=== PATIENT | male | born 1965 | race Caucasian/White ===

== ENCOUNTER 2021-08-30 10:12 | Outpatient (CLI) | payer BC, SELFPAY ==
--- NOTE | 2021-08-30 10:25 | US_ITS ---
STUDY: RENAL ULTRASOUND - COMPLETE REASON FOR EXAM: Male, 55 years old. OCCLUSION TECHNIQUE: Ultrasound evaluation of the kidneys was performed with real-time and static anders-scale imaging. COMPARISON: None. FINDINGS: RIGHT KIDNEY: Normal location of the right kidney, which is normal in size. The right kidney measures 14.1 cm. There is a normal cortex of the right kidney. The renal cortex measures 1.4 cm. 1.5 cm cyst midsection right kidney. There are no right renal calculi. There is moderate hydronephrosis of the right kidney. DISTAL RIGHT URETER: There is non-visualization of the distal right ureter. There is no demonstrated right ureterovesical junction calculus. There is a visualized right ureteral jet. LEFT KIDNEY: Normal location of the left kidney, which is normal in size. The left kidney measures 13.0 cm. There is a normal cortex of the left kidney. The renal cortex measures 2.2 cm. There is no left renal mass or cyst. There are no left renal calculi. There is no left hydronephrosis. DISTAL LEFT URETER: There is non-visualization of the distal left ureter. There is no demonstrated left ureterovesical junction calculus. There is a visualized left ureteral jet. BLADDER: The distended urinary bladder has a volume of 260 ml. The empty urinary bladder has a volume of ml. There is a normal wall thickness of the distended urinary bladder. There is no demonstrated mass within the urinary bladder. There are no demonstrated bladder calculi. US/Kidney and Bladder IMPRESSION: Moderate right hydronephrosis. Electronically Signed: Cabrera Walker MD at 12:26 EST Tel , Service support ,
== END 2021-08-30 23:59 | disposition short-term general hospital (02) ==
PROVIDERS: PCP Family Medicine; Referring Provider Urology; Visit Provider Urology
DX: Q62.11 Congenital occlusion of ureteropelvic junction (principal)
CPT/HCPCS: 76770

== ENCOUNTER 2021-09-08 10:45 | Outpatient (CLI) | payer BC, SELFPAY ==
--- NOTE | 2021-09-08 12:49 | NM_ITS ---
CLINICAL: 55-year-old male with reported history of right flank pain, right kidney hydronephrosis. 99m Tc MAG3 DIURETIC RENAL SCINTIGRAPHY COMPARISON: Renal ultrasound report 08/30/2021 FINDINGS: Following the intravenous administration of 10.5 mCi of 99m Tc MAG3, renal images reveal: 1. The flow study demonstrates relatively normal arterial phase distribution of the radiopharmaceutical to the left kidney. Flow to the right kidney is delayed and decreased. 2. Immediate static delayed nephrogram images depict prompt, homogeneous tracer uptake by the renal parenchyma of the left kidney. Heterogeneous, decreased and delayed radiotracer activity is defined in the right kidney relative to the left. Collecting structure visualization is demonstrated at approximately 2 minutes following tracer injection involving the left and right renal units. Washout of the radiopharmaceutical by the renal parenchyma of the left kidney appears qualitatively normal and prolonged in the right renal unit. Spontaneous drainage of the left kidney collecting system activity is noted during 20 minutes of pre-Lasix sequential image acquisition. Prominent persistent uptake is noted in the right kidney collecting system prior to diuretic provision. 3. The wojkx-hm-wuvm ratio of total renal parenchymal function was calculated to be 47/53. Furosemide 10 mg was administered intravenously. The post Lasix T ? washout of the right kidney collecting system was calculated to be > 20 minutes, (normal < 10 minutes). Analysis of the post diuretic right kidney collecting system time/activity curve demonstrates minimally decreasing count statistics. NM/Renal Scan w/ Pharm Intervent IMPRESSION: 1. There is preservation of left kidney renal parenchymal-cortical function. Cortical dysfunction is displayed in the right renal unit as described above. 2. The prominent right kidney collecting system demonstrates an abnormal response to induced diuresis consistent with the presence of mechanical and/or functional obstruction. T ? Electronically Signed: Cabrera Martinez DO at 14:27 EST Tel , Service support ,
== END 2021-09-08 23:59 | disposition short-term general hospital (02) ==
LOC: US 10:45 → NM 10:46
PROVIDERS: PCP Family Medicine; Referring Provider Urology; Visit Provider Urology
DX: Q62.11 Congenital occlusion of ureteropelvic junction (principal)
CPT/HCPCS: 78708; A9562; J1940

== ENCOUNTER 2021-10-17 05:50 | Day surgery (SDC) | payer BC, SELFPAY ==
--- NOTE | 2021-10-16 09:34 | EKG12_ITS ---
Test Reason : PRE OP Blood Pressure : / mmHG Vent. Rate : 070 BPM Atrial Rate : 070 BPM P-R Int : 154 ms QRS Dur : 102 ms QT Int : 390 ms P-R-T Axes : 055 -25 041 degrees QTc Int : 421 ms Normal sinus rhythm Normal ECG Confirmed by TODD BAEZ, ARMEN ([id number]), subeditor ROBERT MEDINA ([id number]) on 10/17/2021 1:54:21 PM Referred By: Mitchell Flores Confirmed By:ARMEN BROOKS MD
[2021-10-16 10:19] LABS: Hematocrit 45.3 % (40-54); Hemoglobin 15.6 g/dL (13.0-16.5); Mean Corp Hgb Conc 34.4 g/dL (32-36); Mean Corpuscular Hgb 30.9 pg (27.0-32.0); Mean Corpuscular Volume 89.7 fL (80-94); Mean Platelet Vol. 10.3 fl (6.2-12.0); Platelet Count 181 K/mm3 (150-450); RBC Distribution Width CV 12.3 % (11.6-14.6); RBC Distribution Width SD 40.2 fl (35.1-43.9); Red Blood Count 5.05 M/mm3 (4.6-6.2); White Blood Count 5.3 K/mm3 (4.4-11.0)
[2021-10-16 10:43] LABS: Anion Gap 6 (5-15); BUN 17 mg/dL (7-18); BUN/Creat Ratio 21.8 RATIO (10-20); Calcium,Total 9.2 mg/dL (8.5-10.1); Chloride 106 mmol/L (98-107); Creatinine, Serum 0.78 mg/dL (0.70-1.30); EST Glomerular Filtration Rate 109 mL/min (>60); Est Glom Filt Rate - Afr Amer 132 mL/min (>60); Glucose 88 mg/dL (74-106); Potassium 3.8 mmol/L (3.5-5.1); Sodium Level 138 mmol/L (136-145)
[2021-10-17 06:24] VITALS: BP 155/91; PULSE 72; RESP 72; TEMP 36.7; O2SAT 97; BMI 29.6
[2021-10-17] MEDS: Lactated Ringers 1,000 ML 30 ML IV (06:50)
[2021-10-17] MEDS: Cefazolin 2 GM in 0.9% Normal Saline 100 ML IV (07:37)
--- NOTE | 2021-10-17 07:43 | HP.PCM_ITS ---
HPI - General HPI Narrative MADAN LOO, is a 56 M who presents For repair of a right UPJ obstruction outside CAT scan was reviewed showed demonstrated right severe hydronephrosis as well as ultrasound demonstrated right hydronephrosis, renal scan was done demonstrates 43% function in the right kidney 57% function of the left kidney with significant delay of contrast from the right renal pelvis consistent with mechanical UPJ obstruction. We discussed with the patient the options of management for this obstruction when would be observation since he is having little pain the other would be surgical repair with a pyeloplasty we discussed the success rate with pyeloplasty and he consented for the procedure. [facility] Medical History (Updated 10/17/21 @ 07:[address] Mitchell Flores MD) Alcohol use Chewing tobacco use High cholesterol Hypertension Injury of back Marijuana use Sleep apnea Home Medications amlodipine 10 mg PO DAILY 10/08/21 [History Last Taken Unknown] atenolol 25 mg PO DAILY 10/08/21 [History Last Taken Unknown] losartan-hydrochlorothiazide 1 tab PO DAILY 10/08/21 [History Last Taken Unknown] pravastatin 10 mg PO DAILY 10/08/21 [History Last Taken Unknown] ciprofloxacin HCl 500 mg PO BID #10 tab 10/17/21 [Rx Last Taken Unknown] docusate sodium [Colace] 100 mg PO BID #20 cap 10/17/21 [Rx Last Taken Unknown] oxycodone-acetaminophen [Endocet] 1 tab PO Q4H PRN 7 Days #20 tab 10/17/21 [Rx Last Taken Unknown] Allergy/AdvReac Type Severity Reaction Status Date / Time No Known Allergies Allergy Verified 10/17/21 06:21 Surgical History (Updated 10/08/21 @ 09:27 by Adriana Garcia) Hx of colonoscopy Social History Smoking Status: Never smoker ROS Constitutional Constitutional: Denies chills, fever(s) or malaise Eyes Eyes: Denies blurry vision or change in vision ENT HEENT: Reports none Cardiovascular Cardiovascular: Denies chest pain or palpitations Respiratory/Chest Respiratory/Chest: Denies cough or shortness of breath with exertion Gastrointestinal Gastrointestinal: Denies abdominal pain, constipation or diarrhea Musculoskeletal Musculoskeletal: Denies back pain, joint stiffness or joint swelling Integumentary Integumentary: Denies dry skin, jaundice, lesions or rash Neurologic Neurologic: Denies confusion, syncope or weakness Psychiatric Psychiatric: Reports none; Denies anxiety or depression Endocrine Endocrinology: Denies excessive sweating, fatigue or flushing Hematologic/Lymphatic Hematologic/Lymphatic: Denies anemia, easy bleeding or easy bruising Vital Signs Vital Signs Vital Signs: 10/17/21 06:24 Temperature 98.1 F Temperature Source Temporal Pulse Rate 72 Respiratory Rate 72 H Respiratory Pattern Normal Blood Pressure 155/91 H Blood Pressure Mean 112 Blood Pressure Source Monitor Blood Pressure Position Semi-Fowlers Blood Pressure Location Right Arm Pulse Ox 97 Oxygen Delivery Method Room Air Weight Weight: 99 kg Body Mass Index (BMI) 29.6 Physical Exam Const alert and oriented x3 General Appearance: cooperative HEENT normocephalic, head/scalp atraumatic, EAC's normal and TM's normal bilaterally Eyes PERRL and EOMs intact bilaterally Pupil: sluggish Neck no lymphadenopathy, supple and no JVD General: trachea midline Lymph Lymphatic: no lymphadenopathy noted, lymphedema and lymphadenopathy Resp normal respiratory effort, normal air movement and clear to auscultation bilaterally Cardio regular rate, regular rhythm and peripheral pulses 2+ throughout GI soft to palpation, non-tender and non-distended Extremity normal capillary refill and no clubbing, cyanosis or edema General Extremity: no tenderness to palpation of joints or extremities Skin no rashes or lesions noted General Skin Exam: turgor normal Lesions: no lesions Rashes: no rashes Neuro CN's II-XII intact bilaterally Speech: speech normal Motor Exam: strength 5/5 throughout; Negative for general weakness Psych thought process normal, cooperative and affect normal Appearance: appropriate Results Lab / Micro Data Result Diagrams: 10/16/21 09:22 10/16/21 09:22 Labs: Laboratory Results - last 24 hr 10/16/21 09:22: WBC 5.3, RBC 5.05, Hgb 15.6, Hct 45.3, MCV 89.7, MCH 30.9, MCHC 34.4, RDW Std Deviation 40.2, RDW Coeff of Benito 12.3, Plt Count 181, MPV 10.3 10/16/21 09:22: Sodium 138, Potassium 3.8, Chloride 106, Carbon Dioxide 26.0, Anion Gap 6, BUN 17, Creatinine 0.78, Est GFR (MDRD) Af Amer 132, Est GFR (MDRD) Non-Af 109, BUN/Creatinine Ratio 21.8 H, Glucose 88, Calcium 9.2 Micro: Microbiology 10/16/21 11:10 Interface Orders SARS-CoV-2 Antigen (Rapid) - Final
--- NOTE | 2021-10-17 07:46 | PCM.DC ---
Discharge Instructions Diet Discharge Diet: Light diet - advance as tolerated and Soft diet Activity Discharge Activity: May Not Drive (while taking narcotic pain medications.) Return to work on:: 11/14/21 May shower in (days): 1 May resume sexual activity in: No Restrictions Dressing / Incision Call your doctor if you observe: Fever of 101 or Higher Follow Up Care Please Follow Up With: Mitchell Flores MD When: Call [phone] for an appointment Test Results: Test results from this visit will be discussed in further detail at your follow-up appointment, if applicable. Discharge Plan Admission Primary Reason for Your Visit: Right laparoscopic robotic assisted pyeloplasy repair Attending Provider: Mitchell Flores Primary Care Provider: Merritt Grant Consulting Providers: Wayne Ugalde Discharge Orders/Prescriptions Prescriptions: New oxycodone-acetaminophen [Endocet] 5-325 mg tablet 1 tab PO Q4H PRN (Reason: pain) 7 Days Qty: 20 RF: 0 docusate sodium [Colace] 100 mg capsule 100 mg PO BID Qty: 20 RF: 0 ciprofloxacin HCl 500 mg tablet 500 mg PO BID Qty: 10 RF: 0 Continued atenolol 25 mg tablet 25 mg PO DAILY RF: 0 losartan-hydrochlorothiazide 100-25 mg tablet 1 tab PO DAILY RF: 0 pravastatin 10 mg tablet 10 mg PO DAILY RF: 0 amlodipine 10 mg tablet 10 mg PO DAILY RF: 0 Other Ambulatory Orders: 12 Lead EKG (Routine) Timeframe: [id number] Location: None Selected Ordered By: Dr. Wayne Ugalde Referrals / Follow Up: Mitchell Flores MD [STAFF PHYSICIAN] - Merritt Grant MD [Primary Care Provider] - Disposition Disposition (needs filled in before D/C Order can be placed): Home, Self Care
[2021-10-17] MEDS: Lactated Ringers 1,000 ML 75 ML IV (08:46)
[2021-10-17] MEDS: Ondansetron 4 MG/2 ML Vial IV (09:44)
--- NOTE | 2021-10-17 10:03 | PCM.OPRPT ---
Report of Operation Date of Procedure: 10/17/21 Pre-Operative Diagnosis: Right UPJ obstruction Post-Operative Diagnosis: Same Surgery/Procedure Performed:: Laparoscopic robotic assisted right pyeloplasty repair,, cystoscopy retrograde pyelogram interpretation fluoroscopic images and placement of a right stent Description of Surgical Findings:: Indication is a 56-year-old male who was having severe pain in the right side CT scan was done at outside hospital which demonstrated a dilated pelvis consistent with possible UPJ obstruction we did an ultrasound that demonstrated a dilated swollen pelvis and also we did a right MAG3 renal scan that demonstrated functional obstruction of the right kidney consistent with mechanical UPJ obstruction. In the preoperative setting we discussed with the patient the options of management for this finding one option would be observation since he does have a healthy other kidney but potential for more deterioration in function in the right kidney the renal scan did demonstrate he only had 43% function differential on that side. Other option would be to do a laparoscopic robotic assisted pyeloplasty repair and a stent placement he elected to proceed with surgical repair understands that the success rate is not 100% but usually fairly good success in repairing these strictures understands most likely there is a crossing vessel in one of the reroute the ureter over the crossing vessel. Patient was taken back to the operating room after smooth induction of a general anesthesia he was placed in dorsolithotomy position. The penis and testicles were prepped and draped in usual sterile fashion. Using a 21 Upper Sorbian rigid Olympus cystourethroscope with a 30 degree lens I went into the urethra the entire length the urethra was normal the sphincter was normal the verumontanum was normal the prostate was normal inside the bladder there is no tumors stones or abnormalities the trigone was normal. I then cannulated the right ureteral orifice with a Glidewire and a Pollick catheter and advanced the Pollack catheter up to the mid ureter then using contrast we injected to perform a retrograde pyelogram we can see contrast going up the ureter we could not see a kinking of the ureter and then we could see the spray as a result of this kinking into the dilated renal pelvis. After the retrograde pyelogram was performed then a 0.038 Glidewire was advanced into the kidney and coiled in the kidney and then over the Glidewire the Pollack catheter was removed and a stent 6 Upper Sorbian by 26 cm double-pigtail stent was placed over the wire up to the right kidney and then once a good position with the wire was removed and the stent coiled in the right kidney and the bladder in good position we then placed a Pink catheter in the bladder to decompress the bladder. The patient was then repositioned for the second part of the procedure drapes were taken down he was placed in lateral flank position making sure to pressure all his pressure points axillary roll was placed to the support to the shoulder, he was placed in modified flank position and secured to the table. Then the abdomen was shaved prepped and draped in usual sterile fashion I looked at the abdomen and identified my points of entry were again to go to the umbilicus right arm and the left arm 3 laparoscopic ports for this procedure. Using left Marcaine the umbilicus was infiltrated with Marcaine and then a small incision was made in the umbilicus and then Veress needle was introduced in the peritoneal cavity and we infiltrated and filled the peritoneal cavity with CO2 gas with a pressure of 15 mm and high flow was used. We placed our first port in the umbilicus we then placed our right arm port superior to this handbreadth away and our inferior port superior this and a handbreadth away for 2 arms and the camera arm. We then docked the robot and we inspected the abdomen as expected the colon was draping over the kidney so the first thing was accomplished was reflection of the colon off the kidney by incising the white line of Toldt and reflecting the colon off the kidney from an from the kidney all the way down to the pelvis once the colon was reflected off the kidney then we dissected underneath the kidney until we identified the gonadal vessel and then below the connote narrow vessel we identified the ureter the ureter was then traced very carefully marching along the ureter knowing that very likely had a crossing vessel and we encountered a very large renal artery and also renal vein crossing over the top of the ureter causing the kinking. The renal pelvis had been decompressed with a stent so then the renal pelvis was identified superior to the connection of the ureter to the kidney I was able to pull the renal pelvis superiorly we then used a Joo needle with 3-0 Monocryl and this was used to hold up the renal pelvis still out of further dissection after the renal pelvis was dissected then the UPJ area was transected and then we are able to pull the ureter underneath the crossing vessels and then over the top of the crossing vessels as we were doing this we did encounter 1 small bleeder that was clip was placed to control this. After this then we pulled the ureter over the top we then spatulated the posterior aspect of the ureter the was a nice wide open gap into the renal pelvis we did not do any tailoring of the renal pelvis since I did not feel this was necessary and we proceeded with the anastomosis using 3-0 Monocryl stitches the first stitch was cut was brought in to approximate the posterior ureter to the posterior aspect of the renal pelvis after this was done and the 2 ends reapproximated then the stent was put into the renal pelvis and this lined up the ureter perfectly then for 5 more stitches were used with 3-0 Monocryl to approximate the ureter to the renal pelvis in a semiwatertight fashion but loose approximation to avoid any stricturing or vessel necrosis of the distal end of the ureter once the 2 ends were approximated nicely then we irrigated the abdomen there was no signs of bleeding we placed FloSeal around the area of the renal pelvis and the hilum and then we inspected and there was no bleeding the robot was undocked the arms were removed we removed all 3 trochars desufflated the abdomen and then closed all 3 sites with subcuticular particular stitches and more Marcaine was placed into the wound. He will go home with the pink. Surgeon: nikko Type of Anesthesia: General Drains: Stent and pink Admit VTE Documentation VTE Present on Admission: No VTE Mechan Device Prophylaxis: SCD's VTE Pharm Prophylaxis ordered?: No
[2021-10-17] MEDS: Ketorolac 30 MG/ML Syringe IV (10:04)
[2021-10-17] MEDS: Bupivacaine Mpf 0.5% 30 ML VIAL (10:10)
[2021-10-17 10:26] VITALS: BP 155/91; BP 155/96; PULSE 76; RESP 16; TEMP 36.6; O2SAT 100
[2021-10-17 10:45] VITALS: BP 121/82; BP 155/91; PULSE 71; RESP 16; O2SAT 95
[2021-10-17 11:00] VITALS: BP 123/90; BP 155/91; PULSE 67; RESP 16; O2SAT 100
[2021-10-17 11:15] VITALS: BP 139/97; BP 155/91; PULSE 69; RESP 16; TEMP 36.8; O2SAT 99
[2021-10-17 11:45] VITALS: BP 155/91
== END 2021-10-17 23:59 | disposition home or self-care (01) ==
LOC: SDC 05:51 → AC 05:51
PROVIDERS: Anesthesiology; PCP Family Medicine; Referring Provider Urology; Visit Provider Urology
PROC: 8E0W4CZ Robotic Assisted Procedure of Trunk Region, Percutaneous Endoscopic Approach (ICD-10-PCS; CPT 50544; principal; 2021-10-17 07:00)
DX: N13.30 Unspecified hydronephrosis (principal); I10 Essential (primary) hypertension; E78.00 Pure hypercholesterolemia, unspecified; G47.30 Sleep apnea, unspecified; F12.90 Cannabis use, unspecified, uncomplicated; Z72.89 Other problems related to lifestyle; F17.220 Nicotine dependence, chewing tobacco, uncomplicated
CPT/HCPCS: 50544; 00862; S2900; 36415; 76000; 80048; 85027; 87426; 93005; C9803; J7120; A4216; C1769; C2617; J2405